=== PATIENT | male | born 1965 | race Caucasian/White ===

== ENCOUNTER 2018-06-02 12:36 | Emergency (ER) | payer OTHER ==
[~2018-06-02] VITALS: Ht 170.2 cm; Wt 65.0 kg
[2018-06-02] MEDS ORDERED: DIAZEPAM 5 MG TABLET PO ONE (14:00)
[2018-06-02] MEDS ORDERED: KETOROLAC TROMETHAMINE 30 MG/ML VIAL IM ONE (14:00)
[2018-06-02 14:25] VITALS: BP 116/74
[2018-06-02] MEDS ORDERED: SIMV40TA5 PO (14:44)
[2018-06-02] MEDS ORDERED: ASPI-556 PO (14:44)
== END 2018-06-02 14:46 | disposition home or self-care (01) ==
LOC: EDSEX 12:39 → EMS 12:39
DX: S46.911A Strain of unspecified muscle, fascia and tendon at shoulder and upper arm level, right arm, initial encounter (principal); S46.912A Strain of unspecified muscle, fascia and tendon at shoulder and upper arm level, left arm, initial encounter; M54.2 Cervicalgia; E78.00 Pure hypercholesterolemia, unspecified; X58.XXXA Exposure to other specified factors, initial encounter; Y93.H1 Activity, digging, shoveling and raking; Y92.69 Other specified industrial and construction area as the place of occurrence of the external cause; Y99.0 Civilian activity done for income or pay
CPT/HCPCS: 96372; 99283; J1885